=== PATIENT | male | born 1975 | race Caucasian/White ===

== ENCOUNTER 2024-04-23 10:19 | Emergency (ER) | payer OTHER, SELFPAY ==
[2024-04-23] VITALS (15 sets, daily range): BP systolic 165–197; BP diastolic 92–131
[2024-04-23] MEDS: ZOFRAN 4 MG IV (10:55)
[2024-04-23] MEDS: SUBUTEX 4 MG SL (10:56)
[2024-04-23] MEDS: CATAPRES 0.2 MG PO ×2 (10:56→14:41)
--- NOTE | 2024-04-23 10:58 | ED.GENMED ---
History of Present Illness
General
Chief Complaint: Blood Pressure Problem
Source: patient and police
Exam Limitations: none
Time Seen by Provider: 04/23/24 10:38
Nursing documentation reviewed up to this point in time: agreed with
History of Present Illness
History of Present Illness:
48-year-old male with a past medical history of hypertension, polysubstance use who presents to the emergency room for evaluation of hypertension and opioid withdrawal. Patient was arrested today and was brought here for medical clearance prior to
incarceration. He says that he regularly uses fentanyl and cocaine�he says that he smokes both never injects. Denies any other drug use. He denies any alcohol use. He says his last use was 2 days ago around noon time. He says that yesterday he
started to have withdrawal symptoms and they have continued today. He reports nausea with vomiting, 'bone pain,' sweatiness, anxiety/restlessness. Reports mild headache. He was noted to be hypertensive and was complaining of withdrawal prior to
incarceration and was brought here to the ER. Denies any chest pain, shortness of breath, cough, fevers. He says that he does wish to try to wean off opiates and has previously had success with Subutex. Regarding his hypertension�he does report a
known history of hypertension. He says that he normally takes clonidine 0.2 mg 3 times daily and he has not taken it since yesterday morning.
Past History
Past History
ED Past Medical History: Other (back pain, DDD.)
ED Past Surgical History: Other (spinal fusion)
Social History
Tobacco: Smoker
Review of Systems
Review of Systems
All Other Systems: ROS reviewed and negative except as documented in HPI and ROS
Constitutional: Reports fatigue and chills; Denies fever
Respiratory: Denies cough or trouble breathing
Cardiac: Reports diaphoresis; Denies chest pain or palpitations
ABD/GI: Reports nausea and vomiting; Denies abdominal pain
: Denies flank pain
Musculoskeletal: Denies neck pain or back pain
Neurological: Reports headache; Denies dizzy, weakness or numbness
Phy Exam
Physical Exam
Physical Exam:
General: Awake, alert, oriented x3; no acute distress
Head: Normocephalic, atraumatic
Eyes: Conjunctiva normal
Throat: Airway intact, handling secretions
Neck: Trachea midline, supple without meningismus
Lungs: Clear to auscultation bilaterally, no wheezing, rales, rhonchi
Heart: Regular rate and rhythm, no murmurs, gallops, or rubs
Abd: Soft, non distended, nontender
Neuro: No gross deficits
Skin: No visible sweat but moist to the touch, warm, no rash
Extremities: No edema in extremities, equal pulses in all extremities
Scores
COW Clinical Opiate Withdrawal Scale
Resting Pulse Rate: 81-100
Sweating-over past 30min not from room temp or activity: Reports chills or flushing
Restlessness-observation during assessment: Reports difficulty sittin
Pupil Size: Pupils possibly larger than normal for room light
Bone or Joint Aches: Mild diffuse discomfort
Runny Nose or Tearing-not accounted for by cold/allergies: Not present
GI Upset-over last 30min: Vomiting or diarrhea
Tremor-observation of outstretched hands: Tremor can be felt, but not observed
Yawning-observation during assessment: No yawning
Anxiety or Irritability: Patient obviously irritable or anxious
Gooseflesh Skin: Skin is smooth
Score: 11
Withdrawal Severity: Mild Withdrawal, consider starting Suboxone
Heart Failure Risk
Heart Failure Risk Score: Not Applicable
Heart Score for Chest Pain Patients
STEMI patient?: Not applicable
Withdrawal Assessment of Alcohol
Withdrawal Assessment Completed?: Not applicable
Course
Orders/Labs/Results
Orders:
Orders
04/23/24 10:38
Electrocardiogram (*1) Urgent
Reason for Study: Hypertension, Benign
EKG- Treatment ONCE
Buprenorphine [Subutex] 4 mg SL NOW ONE
Clonidine [Catapres] 0.2 mg PO NOW STA
04/23/24 10:39
Ondansetron Injectable [Zofran] 4 mg IV NOW STA
04/23/24 11:01
Alcohol Urgent
Complete Blood Count/With Diff Urgent
Comprehensive Metabolic Panel Urgent
Drug Screen, Urine [Urine Drug Abuse Screen] Urgent
Date Specimen was Collected: 04/23/24
Time Specimen was Collected: 10:43
Fentanyl, Urine Urgent
04/23/24 11:07
Troponin I Urgent
04/23/24 12:06
Buprenorphine [Subutex] 8 mg SL NOW ONE
04/23/24 14:35
Clonidine [Catapres] 0.2 mg PO NOW STA
04/23/24 15:35
Buprenorphine [Subutex] 8 mg SL NOW ONE
04/23/24 15:37
HydrALAZINE [Apresoline] 10 mg IV NOW STA
Abnormal Lab Results
04/23/24
11:01
Absolute Neuts (auto) 7.5 H 10^3/uL
(1.4-6.5)
Absolute Lymphs (auto) 0.9 L 10^3/uL
(1.2-3.4)
Neutrophils % 84.5 H %
(42.2-75.2)
Lymphocytes % 10.5 L %
(20.5-51.1)
Carbon Dioxide 34 H mmol/L
(22-30)
Glucose 118 H mg/dl
(70-99)
Urine Opiates Screen Positive H
(Negative)
Urine Fentanyl Screen Positive H
(Negative)
U Methamphetamines Scrn Positive H
(Negative)
Urine Cocaine Screen Positive H
(Negative)
U Marijuana (THC) Screen Positive H
(Negative)
04/23/24 11:01
04/23/24 11:01
Vital Signs
Blood pressure: 167/92
Initial and Last Documented VS:
Initial Vital Signs
Temp Pulse Resp BP Pulse Ox
36.3 C 60 20 180/114 99
04/23/24 10:31 04/23/24 10:31 04/23/24 10:31 04/23/24 10:31 04/23/24 10:31
Last Documented Vital Signs
Temp Pulse Resp BP Pulse Ox
36.3 C 101 25 167/92 99
04/23/24 10:31 04/23/24 16:00 04/23/24 16:00 04/23/24 16:54 04/23/24 12:15
MDM/Problems Addressed
Differential Diagnosis Includes:
Opioid withdrawal
MDM/Problems Addressed:
48-year-old male with history as above presents to the emergency room for evaluation of hypertension and complaining of opioid withdrawal symptoms. Last opioid use was 48 hours ago. Known history of hypertension takes clonidine 0.2 mg 3 times
daily and has not taken medicine since yesterday morning. Blood pressure 180/114 on arrival rest of vitals normal. Physical exam as above. COWS score as above. Will plan to check basic screening labs, EKG. Will treat symptomatically with Zofran
and can start on Subutex. Will provide home dose of clonidine which may help with opioid withdrawal symptoms as well. Will reassess after the above.
Patient still symptomatic after initial dose of Subutex, provide repeat dose 8 mg. Labs reviewed: CBC unremarkable, CMP no clinically significant abnormalities. Troponin undetectable. UDS positive for opiates including fentanyl, methamphetamines,
cocaine, marijuana.
Blood pressure remains elevated and patient still symptomatic�COWS 9. Will repeat clonidine. He reports previous dose of Subutex was 24 mg daily. He tolerated initial dosing quite well and last opioid use was reportedly 48 hours ago. Can provide
an additional 8 mg dose.
Blood pressure still significantly elevated will treat with hydralazine for better control. He is feeling better after additional Subutex. COWS 3.
Blood pressure greatly improved after treatment. He is feeling much better. He is no longer in police custody police that he is released. Discussed with [facility] to help with warm handoff for rehab.
[facility] will speak with patient to discuss warm handoff and placement in rehab. Patient cleared from medical perspective will prescribe refill for his blood pressure medication and patient will wait here for warm handoff. We did provide Narcan in
hand.
Chronic conditions affecting care:
Hypertension, opioid use
Acute Exacerbation and/or Progression of Chronic Illness:
Acutely hypertensive treated with clonidine
Acute Exacerbation and/or Progression of Chronic Illness: HTN
*Pulse Oximetry
Patient hypoxic: no
*EKG
Interpreted by ED Provider?: Yes
Heart Rate: 64
Rate: normal
Rhythm: sinus
[place]: normal axis
Interval: long QT
QRS Pattern: left vent hypertrophy
Ischemia: non-specific ST changes
*Critical Care Note
Total Time (30-74mins, 75-104mins- exclusive of procedures): Not Applicable
Data Reviewed
Source: patient and police
ED Attending Note
-
Portions of this chart may have been created with voice recognition software.� Occasional wrong word or��sound alike� substitutions may have occurred due to the inherent limitations of voice recognition software.
Discharge Plan
Departure
Patient Disposition: Acute Rehab Facility
Date of Disposition: 04/23/24
Time of Disposition: 17:07
Patient with high blood pressure during this ER visit?: Yes
Discharge Problem:
Opioid withdrawal, Hypertension
Instructions: High Blood Pressure (DC), Substance Use Disorder ED
Prescriptions:
New
clonidine HCl 0.2 mg tablet
0.2 mg PO TID Qty: 90 0RF
No Action
tramadol [Ultram] 50 MG tablet
50 mg PO Q4HPRN PRN (Reason: pain) Qty: 12 0RF
Referrals:
[facility] [Family Provider] -
Activity Restrictions/Additional Instructions:
Thank you for visiting the Emergency Department at [facility].
1. Please schedule a follow up appointment as directed. Call first thing tomorrow morning to make an appointment.
2. If indicated, please take your medications as instructed and indicated on discharge paperwork.
3. If any of your symptoms do not improve, or persist, or become more severe within 6-12 hours, please return to the emergency department for further care.
4. Please return to the emergency department if you develop a headache, neck pain/stiffness, fever greater than 100.4F, chest pain, shortness of breath, persistent nausea, vomiting, slurred speech, difficulty walking, numbness/tingling, weakness,
signs of infection or any other symptoms that are worrisome to you.
Please call [phone] if you have any questions.
Interventions
Interventions:
*General Assessment Last Done: 04/23/24 10:31
*Neglect/Abuse Screening Last Done: 04/23/24 10:31
ED- Fall Risk Assessment Last Done: 04/23/24 10:37
*ED COVID-19 Vaccine History Last Done: 04/23/24 10:31
ED- Cardiac Assessment Last Done: 04/23/24 10:37
ED- Neurological Assessment Last Done: 04/23/24 10:37
ED- Pulmonary Assessment Last Done: 04/23/24 10:37
Discharge Date and Time
Print Language: YI
[2024-04-23 11:24] LABS: % Basophils 0.6 % (0-2); % Immature Granulocytes 0.2 % (0-0.5); % Lymphocytes 10.5 % (20.5-51.1); % Monocytes 4.2 % (1.7-9.3); % Neutrophils 84.5 % (42.2-75.2); Absolute Basophils 0.1 10^3/uL (0-0.2); Absolute Lymphocytes 0.9 10^3/uL (1.2-3.4); Absolute Monocytes 0.4 10^3/uL (0.1-0.6); Absolute Neutrophils 7.5 10^3/uL (1.4-6.5); Hematocrit 45.1 % (39.0-52.0); Hemoglobin 15.4 g/dL (13.0-18.0); Mean Corp Hgb Conc. 34.1 g/dL (33.0-37.0); Mean Corpuscular Hgb 28.8 pg (27.0-31.0); Mean Corpuscular Volume 84.3 fL (80.0-94.0); Mean Platelet Volume 10.2 fL (7.4-10.4); Nucleated Red Blood Cells % 0 % (-); Platelet Count 292 10^3/uL (130-400); Red Blood Cell Count 5.35 10^6/uL (4.70-6.10); Red Cell Dist. Width 13.7 % (11.5-14.5); White Blood Cell Count 8.9 10^3/uL (4.8-10.8)
[2024-04-23 11:35] LABS: ALT (SGPT) 17 U/L (0-50); AST (SGOT) 25 U/L (17-59); Albumin 4.9 g/dl (3.5-5.0); Alkaline Phosphatase 71 U/L (38-126); Blood Urea Nitrogen 15 mg/dl (9-20); Calcium 10.1 mg/dl (8.4-10.2); Carbon Dioxide 34 mmol/L (22-30); Chloride 100 mmol/L (98-107); Glucose 118 mg/dl (70-99); Potassium 4.2 mmol/L (3.5-5.1); Sodium 145 mmol/L (135-145); Total Bilirubin 0.8 mg/dl (0.2-1.3); Total Protein 7.5 g/dl (6.3-8.2); eGFR > 60.00
[2024-04-23 11:46] LABS: Troponin I < 0.012 ng/ml
[2024-04-23 11:47] LABS: Alcohol None Detected
[2024-04-23 12:21] LABS: Cocaine Positive (Negative); Marijuana Positive (Negative)
[2024-04-23 12:22] LABS: Amphetamines Negative (Negative); Barbiturates Negative (Negative); Benzodiazepines Negative (Negative); Buprenorphine Negative (Negative); Methadone Negative (Negative); Methamphetamines Positive (Negative); Opiates Positive (Negative); Phencyclidine Negative (Negative); Tricyclic Antidepressants Negative (Negative)
[2024-04-23 12:30] LABS: Fentanyl, Urine Positive (Negative)
[2024-04-23] MEDS: SUBUTEX 8 MG SL ×2 (13:22→15:46)
[2024-04-23] MEDS: APRESOLINE 10 MG IV (15:46)
== END 2024-04-23 18:03 ==
LOC: EMR 10:19
PROVIDERS: EMERGENCY PHYSICIAN Emergency Medicine
DX: F11.23 Opioid dependence with withdrawal (principal); I10 Essential (primary) hypertension; F17.200 Nicotine dependence, unspecified, uncomplicated; T46.5X6A Underdosing of other antihypertensive drugs, initial encounter; Z65.3 Problems related to other legal circumstances; Z79.899 Other long term (current) drug therapy; Z98.1 Arthrodesis status
CPT/HCPCS: 99283; 96374; 96375; 80053; 80306; 80307; 82077; 84484; 85025; 93005